=== PATIENT | male | born 1970 | race American Indian/Alaskan Native ===

== ENCOUNTER 2020-07-15 10:30 | Outpatient (CLI) | payer OTHER ==
--- NOTE | 2020-07-15 13:18 | Cat Scan Report ---
CT neck wo/w con INDICATION / CLINICAL INFORMATION: 49 years Male; MAIN. TECHNIQUE: Contiguous thin cut axial images obtained through the neck following IV contrast. Sagittal and brewer l reconstructions performed by the technologist. All CT scans at this location are performed using CT dose reduction for ALARA by means of automated exposure control. COMPARISON: None available. FINDINGS: MUCOSAL SPACE: No definitive lesions involving visualized oral pharyngeal soft tissues. There is mild fairly symmetric prominence of the palatine soft tissues most consistent with lymphoid hypertrophy. The epiglottis is appropriate in size at. The laryngeal structures appear fairly symmetric. LYMPH NODES: There are a few scattered cervical lymph nodes which measure less than 1 cm in short axi s dimension and are likely reactive. SALIVARY GLANDS: The parotid and submandibular glands demonstrate symmetric attenuation without calci fication or significant surrounding inflammatory changes at. THYROID GLAND: There is enlargement of the thyroid gland with mild heterogeneous attenuation compatib le with patient's reported history of goiter. No focal dominant lesions are appreciated. PARANASAL SINUSES: There is a defect involving medial left orbital wall which may be developmental or related to previous trauma. There is mild opacification of the visualized left sphenoid and right et hmoid sinuses. There is partial air-fluid levels along the maxillary sinuses bilaterally. SPINE: No significant abnormality of the cervical spine appreciated. VASCULAR STRUCTURES: Vascular structures are grossly normal in appearance. IMPRESSION: 1. There is fairly uniform enlargement of the thyroid gland with mild heterogeneous attenuation gina tible with patient's history of goiter. 2. There is sinus disease as described. Signer Name: Michele Harvey MD Signed: 07/15/2020 1:14 PM Workstation Name: [id number]
== END 2020-07-15 10:31 | disposition home or self-care (01) ==
LOC: CT 10:30
PROVIDERS: ATTEND Internal Medicine
DX: E04.9 Nontoxic goiter, unspecified (principal); J32.0 Chronic maxillary sinusitis; R59.0 Localized enlarged lymph nodes
CPT/HCPCS: 36415; 70492; 82565; 84520; Q9967